=== PATIENT | male | born 1960 | race Caucasian/White ===

== ENCOUNTER 2024-03-28 06:27 | Day surgery (SDC) | payer OTHER, SELFPAY | END 2024-03-28 08:51 | disposition home or self-care (01) | LOC: GI 06:27 | PROVIDERS: ATTENDING PHYSICIAN Internal Medicine | DX: Z12.11 Encounter for screening for malignant neoplasm of colon (principal); K57.30 Diverticulosis of large intestine without perforation or abscess without bleeding; D12.1 Benign neoplasm of appendix; D12.3 Benign neoplasm of transverse colon | CPT/HCPCS: 45380; 88305 ==